=== PATIENT | female | born 1945 | race Caucasian/White ===

== ENCOUNTER 2018-02-05 15:43 | Emergency (ER) | payer MEDICARE, BC ==
[2018-02-05 15:57] VITALS: BP 156/96
--- NOTE | 2018-02-05 16:08 | UC ---
Minor Trauma HPI - HPI Summary HPI Summary: 72 yo female presents with left wrist and low back pain. She tells me that on she was on a boat in [facility] on vacation. She was walking down steps and missed a step. She landed on her left wrist/arm and low back/left hip. She was ambulatory immediately after. Since that time has had pain in these areas, but has good movement. Has been taking tylenol for discomfort with good relief. Denies numbness or tingling, saddle anesthesia, or loss of bowel/bladder control. 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 Onset/Duration: Sudden Onset Severity Initially: Severe Severity Currently: Moderate Pain Intensity: 7 Pain Scale Used: 0-10 Numeric - Allergies/Home Medications Allergies/Adverse Reactions: Allergies Allergy/AdvReac Type Severity Reaction Status Date / Time aspirin Allergy Vomiting Verified 02/05/18 16:00 azithromycin Allergy Vomiting Verified 02/05/18 16:00 codeine Allergy Vomiting Verified 02/05/18 16:00 ibuprofen Allergy Vomiting Verified 02/05/18 16:00 morphine Allergy Vomiting Verified 02/05/18 16:00 Home Medications: Home Medications Atorvastatin* [Lipitor*] 10 mg PO 2100 02/05/18 [History Confirmed 02/05/18] Calcium Carb/Vitamin D3/Vit K1 [Viactiv 500-500-40 mg-Unt-Mcg] 1 chw PO DAILY [History Confirmed 02/05/18] Calcium Citrate/Vitamin D3 [Calcium Citrate-Vit D3 Caplet] 1 each PO DAILY 02/05 [History Confirmed 02/05/18] PMH/Surg Hx/FS Hx/Imm Hx Endocrine History: Dyslipidemia Psychological History: Anxiety, Depression - Surgical History Surgical History: Yes Surgery Procedure, Year, and Place: 1987,left knee arthroscopy,1987 tubal ligaton, 1994 right fx calcaneus ORIF, right mastectomy with [id number], 01:right breast implant replacement ;rightfx distal radius ORIF 2010; - Family History Known Family History: Positive: Hypertension - Social History Occupation: Retired Lives: With Family Alcohol Use: Daily Substance Use Type: None Smoking Status (MU): Former Smoker Review of Systems Constitutional: Negative Skin: Negative Respiratory: Negative Cardiovascular: Negative Neurovascular: Negative Musculoskeletal: Other: - Left hip pain. Left wrist pain Neurological: Negative Psychological: Negative All Other Systems Reviewed And Are Negative: Yes Physical Exam - Summary Physical Exam Summary: GENERAL: NAD. WDWN. No pain distress. SKIN: No rashes, sores, lesions, or open wounds. CHEST: No accessory muscle use. Breathing comfortably and in no distress. CV: Pulses intact radial and ulnar. Cap refill <2seconds MSK: LEFT wrist: Mild TTP about distal radius. FROM, but mild pain in all directions. Strength 5/5 including thread cutter tender strength. No edema or obvious bony deformities. Low back/hip: Mild left TTP over left SI and ischium. Pain with flexion and extension of spine. Strength 5/5 B/L LEs including dorsiflexion and plantar flexion. FROM B/L LEs. No edema. NEURO: Alert. Sensations intact hand and all fingers. Sensations intact L3-S1 b/ l. PSYCH: Age appropriate behavior. Triage Information Reviewed: Yes Vital Signs: Initial Vital Signs Temp 98.6 F 02/05/18 15:49 Pulse 80 02/05/18 15:49 Resp 16 02/05/18 15:49 BP 156/96 02/05/18 15:49 Pulse Ox 100 02/05/18 15:49 Vital Signs Reviewed: Yes Procedures - Splinting Left Upper Extremity Hand-Made Type: orthoglass Splint: volar Pre-Proc Neuro Vasc Exam: normal Post-Proc Neuro Vasc Exam: normal Minor Trauma Course/Dx - Course Course Of Treatment: XR wrist: REPORT AND IMPRESSION: #. Minimally impacted intra-articular fracture at the distal radius involving the radial. styloid. # . Negative for additional fracture or articular malalignment. #. 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 worsening. #. Soft tissue swelling greatest along the radial volar aspect. XR lumbar spine: IMPRESSION: 1. NO EVIDENCE FOR FRACTURE. 2. MODERATE DEGENERATIVE DISC DISEASE. XR hips: IMPRESSION: NO EVIDENCE FOR FRACTURE, IF THE PATIENT'S SYMPTOMS PERSIST RECOMMEND. FOLLOW-UP IMAGING. Pt was splinted in a volar orthoglass splint. Advised to f/u with Orthopedics as soon as possible. - Differential Dx/Diagnosis Provider Diagnoses: Minimally impacted intra-articular fracture at the distal radius involving the radial styloid. Fall. Hip contusion Discharge - Sign-Out/Discharge Documenting (check all that apply): Patient Departure All imaging exams completed and their final reports reviewed: Yes - Discharge Plan Condition: Stable Disposition: HOME Patient Education Materials: Wrist Fracture in Adults (ED) Referrals: El Strickland MD [Primary Care Provider] - Brenda Martinez MD [Medical Doctor] - As Soon As Possible Julian Huff MD [Medical Doctor] - As Soon As Possible Additional Instructions: If you develop a fever, shortness of breath, chest pain, new or worsening symptoms - please call your PCP or go to the ED. Your blood pressure was high at todays visit. Please see your primary provider within 4 weeks for recheck and re-evaluation. 1) Please keep your splint clean, dry, and intact until your appointment with Orthopedics 2) Please call Orthopedics at the number below to schedule a follow up appointment as soon as possible - Billing Disposition and Condition Condition: STABLE Disposition: Home - Attestation Statements Provider Attestation: I was available for consult. This patient was seen by the CULLEN. The patient was not presented to, seen by, or examined by me. -Vivek
--- NOTE | 2018-02-05 16:52 | RAD ---
INDICATION: LEFT wrist pain post fall 4 days ago. COMPARISON: July 26, 2006 TECHNIQUE: AP, lateral, and oblique views LEFT wrist. REPORT AND IMPRESSION: #. Minimally impacted intra-articular fracture at the distal radius involving the radial styloid. #. Negative for additional fracture or articular malalignment. #. 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 #. Soft tissue swelling greatest along the radial volar aspect.
--- NOTE | 2018-02-05 16:54 | RAD ---
INDICATION: Injury, low back pain. COMPARISON: Comparison is made with a prior study from November 27, 2009. TECHNIQUE: 5 views of the lumbar spine were obtained including lateral, oblique, AP and a coned-down lateral view of the lumbar sacral junction. FINDINGS: The vertebra are in normal alignment. No fracture is seen. There is moderate degenerative disc disease at the L1-L2, L2-L3 and L3-L4 levels which has progressed from the prior study. IMPRESSION: 1. NO EVIDENCE FOR FRACTURE. 2. MODERATE DEGENERATIVE DISC DISEASE.
--- NOTE | 2018-02-05 16:55 | RAD ---
INDICATION: Bilateral hip pain. COMPARISON: Comparison is made with a prior x-ray study of the left hip from July 11, 2005. TECHNIQUE: An AP view of the pelvis and frontal and lateral views of both hips were obtained. FINDINGS: The bones are normal alignment. No fracture is seen. There is mild to moderate bilateral osteoarthritic change in the hips. IMPRESSION: NO EVIDENCE FOR FRACTURE, IF THE PATIENT'S SYMPTOMS PERSIST RECOMMEND FOLLOW-UP IMAGING.
== END 2018-02-05 17:28 | disposition home or self-care (01) ==
LOC: UCEAST 15:43
DX: S52.572A Other intraarticular fracture of lower end of left radius, initial encounter for closed fracture (principal); S70.02XA Contusion of left hip, initial encounter; W10.9XXA Fall (on) (from) unspecified stairs and steps, initial encounter; Y93.9 Activity, unspecified; Y92.814 Boat as the place of occurrence of the external cause; M51.37 Other intervertebral disc degeneration, lumbosacral region; E78.5 Hyperlipidemia, unspecified; Z88.6 Allergy status to analgesic agent; Z88.1 Allergy status to other antibiotic agents; Z88.5 Allergy status to narcotic agent; Z87.891 Personal history of nicotine dependence
CPT/HCPCS: 72110; 73523; 99211; G0463

== ENCOUNTER 2018-11-13 08:07 | Emergency (ER) | payer MEDICARE, BC ==
[2018-11-13 08:21] VITALS: BP 191/82
--- NOTE | 2018-11-13 08:24 | UC ---
Skin Complaint HPI - HPI Summary HPI Summary: Patient presented to urgent care with left upper lateral facial swelling. Patient was stung by yellow jacket on Monday. Patient states yesterday she a little bit of swelling. Patient states overnight got much worse. Patient states is also itchy. Patient took loratadine at 1am with little improvement. Patient states it feels itchy throughout. No vision changes. No intraoral edema. No difficulty swallowing. Patient without a history of stings does not know reactions. No hives. no other complaints No hives. Patient's medications reviewed this visit. Patient's medications reviewed this visit. 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 ?: No Onset/Duration: Gradual Onset Pain Intensity: 3 - Allergy/Home Medications Allergies/Adverse Reactions: Allergies Allergy/AdvReac Type Severity Reaction Status Date / Time aspirin Allergy Vomiting Verified 11/13/18 08:21 azithromycin Allergy Vomiting Verified 11/13/18 08:21 codeine Allergy Vomiting Verified 11/13/18 08:21 ibuprofen Allergy Vomiting Verified 11/13/18 08:21 morphine Allergy Vomiting Verified 11/13/18 08:21 Home Medications: Home Medications Loratadine 10 mg PO ONCE 11/13/18 [History Confirmed 11/13/18] PMH/Surg Hx/FS Hx/Imm Hx Previously Healthy: Yes Endocrine History: Dyslipidemia - Surgical History Surgical History: Yes Surgery Procedure, Year, and Place: 1987,left knee arthroscopy,. 1987 tubal ligaton,. 1994 right fx calcaneus ORIF,. right mastectomy with reconstruction : right breast implant replacement 2010,2012;. right fx distal radius ORIF 2010;. 05/2018 [facility] JOINT ARTHROPLASTY. CATARACTS - Family History Known Family History: Positive: Hypertension, Non-Contributory - Social History Occupation: Retired Lives: With Family Alcohol Use: Daily Substance Use Type: None Smoking Status (MU): Former Smoker Review of Systems All Other Systems Reviewed And Are Negative: Yes Constitutional: Positive: Negative Skin: Positive: Other - left facial swelling Eyes: Positive: Negative. Negative: Blurred Vision, Eye Redness, Photophobia ENT: Positive: Negative Respiratory: Positive: Negative Cardiovascular: Positive: Negative Is Patient Immunocompromised?: No Physical Exam - Summary Physical Exam Summary: Vital Signs Reviewed: Yes A+Ox3, no distress Eyes: Conjunctiva Clear, TK. EOM intact and full ENT: Hearing grossly normal TM x 2 clear, mmoist, uvula midline, no exudate, no erythema, no intraoral edema left frontal area with edema and erythema of frontal, upper lid, lateral margin eye and under lower lid able to open eye 2/3 - limited by lid edema mild ttp mild warmth no induration, no drainage, no foreign body noted Neck: Positive: Supple Respiratory: Positive: No respiratory distress, No accessory muscle use + CTA throughout no w/r Cardiovascular: RRR nl s1, s2 no m/r CBT <2 sec abd soft + BS nt/nd no guarding, no distension Musculoskeletal Exam: BROOKS x 4 without difficulty Strength Intact, ROM Intact Neurological: Positive: Alert, + sensation throughout Psychological: Positive: Normal Response To examiner Skin: Positive: no rash, no ecchymosis - see above Triage Information Reviewed: Yes Vital Signs: Initial Vital Signs Temp 97.7 F 11/13/18 08:14 Pulse 71 11/13/18 08:14 Resp 18 11/13/18 08:14 BP 191/82 11/13/18 08:14 Pulse Ox 98 11/13/18 08:14 Course/Dx - Course Course Of Treatment: Patient presented to urgent care for evaluation of edema of the frontal upper quadrant of her face. After stung by a bee on Monday. Patient states it's gotten more swollen and itchy. Patient without any intraoral edema difficulty swallowing. No hives elsewhere. On exam patient does have edema to the left upper quadrant of her face. Patient without any distress. Patient able to open her eyes with a normal eye exam. Unclear whether this is local reaction vs early cellulitis. We'll start patient on prednisone and Pepcid. Benadryl with precautions given, cool packs, avoid NSAIDs, and a short course of amoxicillin cases early infection given a 36 hour delay in edema progression/ reddness. Strict return precautions discussed. Patient has been comfortable in agreement with plan. Tetanus is up-to-date. pt requested diflucan for vaginal yeast infection - common following abx strict return precautions Pt with elevated BP - recommend recheck with PCP - mild anxious - Diagnoses Provider Diagnosis: Sting from hornet, wasp, or bee, Left facial swelling Discharge - Sign-Out/Discharge Documenting (check all that apply): Patient Departure All imaging exams completed and their final reports reviewed: No Studies - Discharge Plan Condition: Stable Disposition: HOME Prescriptions: Amoxicillin PO (*) [Amoxicillin 500 MG CAP*] 500 mg PO Q12H #14 cap Famotidine TAB* [Pepcid 20 MG TAB*] 20 mg PO DAILY #14 tab Fluconazole [Diflucan 150 MG (NF)] 150 mg PO ONCE PRN #1 tab PRN Reason: vaginal yeast infection predniSONE [Deltasone 20 MG TAB] 40 mg PO DAILY #10 tablet Patient Education Materials: Insect Bite or Sting (ED) Referrals: El Strickland MD [Primary Care Provider] - Additional Instructions: Take prednisone exactly as prescribed until gone - starting today - Okay to take Benadryl (25mg) every 6 hours as needed. This medication may cause drowsiness - do NOT drive, operate machinery or drink alcohol while taking Benadryl -Take pepcid as prescribed - 2 times daily for 7 days -Avoid getting over heated (hot showers, hot tubs, exercise) for at least 48 hours - Try to avoid aspirin, NSAIDs (Motrin, Aleve, Naprosyn) for 2-3 days - Okay to apply cool compresses to the area of injury - take antibiotics as prescribed - you have been given a prescription for diflucan - okay to take for vaginal yeast infection if you develop from the antibiotics -Contact your doctor or return here with questions or concerns. If you develop difficulty breathing, swelling inside your mouth, worsening reddness, fevers, or any other concerns it is recommended you go immediately to the emergency department for further evaluation and treatment - Billing Disposition and Condition Condition: STABLE Disposition: Home
== END 2018-11-13 08:50 | disposition home or self-care (01) ==
LOC: UCEAST 08:07
DX: T63.441A Toxic effect of venom of bees, accidental (unintentional), initial encounter (principal); Y92.9 Unspecified place or not applicable; Z87.891 Personal history of nicotine dependence; Z88.5 Allergy status to narcotic agent
CPT/HCPCS: 99212; G0463

== ENCOUNTER 2019-07-23 10:42 | Emergency (ER) | payer MEDICARE, BC ==
--- OUTSIDE RECORDS SUMMARY | 2019-07-23 10:49 | XMS REPORT | Continuity of Care Document ---
:1945 External Reference #:[id number] Author Name WENDY Wagner (transmitted by agent of provider Sydney Carson) Address [address] [place] [address] Care Team Providers Name Role Phone El Strickland MD - Family Medicine Care Team Information Photographs Curator [phone] Problems Active Problems Provider Date Closed fracture of distal end of radius Luann Hardin M.D. Onset: Social History Type Date Description Comments Sex Unknown ETOH Use Currently consumes alcohol Tobacco Use Start: Unknown Patient has never smoked Smoking Status Reviewed: 07/01/19 Patient has never smoked Exercise Type/Frequency Exercises regularly Allergies, Adverse Reactions, Alerts Active Allergies Reaction Severity Comments Date Aspirin 05/27/2013 Codeine 05/27/2013 Morphine 05/27/2013 Ibuprofen 05/27/2013 Erythromycin 05/27/2013 Medications Active Medications SIG Qnty Indications Ordering Provider Date Atorvastatin Calcium El Strickland MD 20mg Tablets Prozac Unknown Calcitrate Unknown Calcium + D Unknown Vitamin D3 Unknown Magnesium Unknown Immunizations Description No Information Available Vital Signs Date Vital Result Comment 07/01/2019 2:24pm Height 65 inches 5'5" Weight 126.00 lb Heart Rate 83 /min BP Systolic Sitting 130 mmHg BP Diastolic Sitting 70 mmHg Respiratory Rate 14 /min BMI (Body Mass Index) 21.0 kg/m2 03/15/2018 1:04pm Height 64 inches 5'4" Weight 131.00 lb Heart Rate 86 /min BP Systolic Sitting 134 mmHg BP Diastolic Sitting 90 mmHg Respiratory Rate 16 /min Pain Level 0 BMI (Body Mass Index) 22.5 kg/m2 Results Description No Information Available Procedures Description No Information Available Medical Devices Description No Information Available Encounters Description No Information Available Assessments Date Code Description Provider 07/01/2019 M72.0 Palmar fascial fibromatosis [Dupuytren] KRISTI Wagner Plan of Treatment 07/01/2019 - Aydee Perez [id number] Palmar fascial fibromatosis [Dupuytren] Follow up:Follow up: As needed Functional Status Description No Information Available Mental Status Description No Information Available Referrals Description No Information Available
[2019-07-23 10:54] VITALS: BP 151/88
== END 2019-07-23 11:50 | disposition left against medical advice (07) ==
LOC: UCEAST 10:42
DX: Z53.21 Procedure and treatment not carried out due to patient leaving prior to being seen by health care provider (principal)

== ENCOUNTER 2019-07-23 15:49 | Emergency (ER) | payer MEDICARE, BC ==
[2019-07-23] MEDS ORDERED: Tetan/Diph/Pertus SYR(Tdap)* 0.5 ML SYR(BOOSTRIX) use SYR contains LATEX IM ONE (17:49)
[2019-07-23 17:53] VITALS: BP 150/89
--- NOTE | 2019-07-23 17:56 | UC ---
Bite Injury/Animal HPI - HPI Summary HPI Summary: 74yo female presenting with dog bite to right forearm that happened 4 days ago. Patient denies pain other than when she pushes on it. Denies drainage other than bleeding when she removes the bandage over it. Denies purulent drainage. Denies fever and chills. Denies n/v. Denies pain with arm movement. States it was her daughter's medium sized dog and that she is "pretty sure the dog would be vaccinated." Unsure if tetanus shot is UTD. States she was enouraged by her to be evaluated. 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 - Allergies/Home Medications Allergies/Adverse Reactions: Allergies Allergy/AdvReac Type Severity Reaction Status Date / Time aspirin Allergy Vomiting Verified 07/23/19 17:53 azithromycin Allergy Vomiting Verified 07/23/19 17:53 codeine Allergy Vomiting Verified 07/23/19 17:53 ibuprofen Allergy Vomiting Verified 07/23/19 17:53 morphine Allergy Vomiting Verified 07/23/19 17:53 Home Medications: Home Medications Cholecalciferol TAB* [Vitamin D TAB*] 1,000 unit PO DAILY 06/06/16 [History Confirmed 07/23/19] Atorvastatin* [Lipitor*] 20 mg PO 2100 02/05/18 [History Confirmed 07/23/19] Amoxicillin/Clavulanate TAB* [Augmentin TAB 875*] 875 mg PO BID #10 tab [Rx] Calcium Carb/Vitamin D3/Vit K1 [Viactiv 650 mg-12.5 Mcg Chew] 1 each PO DAILY [History Confirmed 07/23/19] Calcium Citrate TAB* [Citracal TAB*] 07/23/19 [History] PMH/Surg Hx/FS Hx/Imm Hx Previously Healthy: Yes - Surgical History Surgical History: Yes Surgery Procedure, Year, and Place: 1987,left knee arthroscopy,. 1987 tubal ligaton,. 1994 right fx calcaneus ORIF,. right mastectomy with reconstruction 1999,: right breast implant replacement 2010,2012;. right fx distal radius ORIF 2010;. 05/2018 [facility] JOINT ARTHROPLASTY. CATARACTS - Family History Known Family History: Positive: Hypertension, Non-Contributory - Social History Alcohol Use: Daily Substance Use Type: None Smoking Status (MU): Former Smoker Review of Systems All Other Systems Reviewed And Are Negative: Yes Constitutional: Positive: Negative Skin: Positive: Other - dog bite right forearm ENT: Positive: Negative Respiratory: Positive: Negative Cardiovascular: Positive: Negative Gastrointestinal: Positive: Negative Musculoskeletal: Positive: Negative Neurological/Mental Status: Positive: Negative Physical Exam - Summary Physical Exam Summary: Vital Signs Reviewed: Yes A+Ox3, no distress, well-appearing Eyes: Conjunctiva Clear ENT: Hearing grossly normal= Neck: Positive: Supple Respiratory: Positive: No respiratory distress, No accessory muscle use = Cardiovascular: skin reflects adequate perfusion, cap refill <2 sec Musculoskeletal Exam: BROOKS x 4 without difficulty, no TTP of right elbow or wrist , ROM intact Neurological: Positive: Alert, + sensation throughout Psychological: Positive: age appropriate behavior Skin: Positive: small superficial abrasion with skin flaps well-approximated and healing over wound noted on right dorsal forearm with underlying ecchymosis , no active drainage or bleeding, no fluctuance, no red streaking Vital Signs: Vital Signs (72 hours) 07/23/19 17:32 Temperature 97.4 F Pulse Rate 75 Respiratory 16 Rate Blood Pressure 150/89 (mmHg) O2 Sat by Pulse 99 Oximetry Bite Injury Course/Dx - Course Course Of Treatment: Patient's wound was cleansed. No obvious signs of infection. I treated patient with Augmentin prophylactically. Instructed to continue with wound care and to monitor the area for signs of infection. Instructed to return to ED if any red flags occur. Patient also received tetanus booster today. Patient voiced understanding and agreed with treatment plan. - Differential Dx/Diagnosis Provider Diagnosis: Dog bite of right forearm without complication Discharge ED - Sign-Out/Discharge Documenting (check all that apply): Patient Departure All imaging exams completed and their final reports reviewed: No Studies - Discharge Plan Condition: Stable Disposition: HOME Prescriptions: Amoxicillin/Clavulanate TAB* [Augmentin TAB 875*] 875 mg PO BID #10 tab Patient Education Materials: Animal Bite (ED) Referrals: El Strickland MD [Primary Care Provider] - If Needed Additional Instructions: Take augmentin to prevent infection of your bite wound. Continue to gently wash with soap and water daily. Monitor the area for signs of infection that were discussed. Return or go to emergency room if any red flags occur. - Billing Disposition and Condition Condition: STABLE Disposition: Home
== END 2019-07-23 18:30 | disposition home or self-care (01) ==
LOC: UCEAST 15:49
DX: S51.851A Open bite of right forearm, initial encounter (principal); Z23 Encounter for immunization; W54.0XXA Bitten by dog, initial encounter; Y92.9 Unspecified place or not applicable; Z88.8 Allergy status to other drugs, medicaments and biological substances; Z88.1 Allergy status to other antibiotic agents; Z88.5 Allergy status to narcotic agent; Z88.6 Allergy status to analgesic agent; Z87.891 Personal history of nicotine dependence
CPT/HCPCS: 90471; 90715; 99213; G0010; G0463